=== PATIENT | male | born 1940 | race Caucasian/White ===

== ENCOUNTER 2021-08-11 05:41 | Day surgery (SDC) | payer MEDICARE, BC ==
[2021-08-03 12:04] LABS: BASOPHILS % (AUTO) 0.6 % (0-1); EOSINOPHILS # (AUTO) 0.2 X10'3 (0-0.9); EOSINOPHILS % (AUTO) 3.8 % (0-6); LYMPHOCYTES # (AUTO) 1.5 X10'3 (1.1-4.8); LYMPHOCYTES % (AUTO) 23.5 % (21-51); MEAN CORPUSCULAR HEMOGLOBIN 33.2 PG (27.0-31.0); MEAN CORPUSCULAR HGB CONC 34.3 g/dL (33.0-36.5); MEAN CORPUSCULAR VOLUME 96.8 FL (78-98); MONOCYTES # (AUTO) 0.6 X10'3 (0-0.9); MONOCYTES % (AUTO) 9.8 % (2-12); NEUTROPHILS # (AUTO) 3.9 X10'3 (1.8-7.7); NEUTROPHILS % (AUTO) 62.3 % (42-75); PRE OP HEMOGLOBIN 14.4 g/dL (14.0-17.9); PRE OP PLATELET COUNT 183 X10'3 (140-440); RED BLOOD COUNT 4.34 X10'6 (4.70-6.10); RED CELL DISTRIBUTION WIDTH 12.9 % (11.5-14.5)
[2021-08-03 12:16] LABS: ALBUMIN/GLOBULIN RATIO 1.3 (1.1-1.5); ALKALINE PHOSPHATASE 81 IU/L (46-116); BLOOD UREA NITROGEN 19 MG/DL (7-18); BUN/CREATININE RATIO 24.4 (5.4-32.0); CALCIUM 8.7 MG/DL (8.5-10.1); CHLORIDE 106 MMOL/L (99-107); CREATININE 0.78 MG/DL (0.60-1.10); PRE OP ALT 29 U/L (30-65); PRE OP ANION GAP 11 (8-16); PRE OP AST 20 U/L (10-37); PRE OP BILIRUB, TOTAL 0.5 MG/DL (0.0-1.0); PRE OP GLUCOSE 92 MG/DL (70-104); PRE OP POTASSIUM 4.2 MMOL/L (3.4-5.1); PRE OP SODIUM 142 MMOL/L (135-145); eGFR > 90 ML/MIN
[2021-08-11] VITALS (9 sets, daily range): BP systolic 129–140; BP diastolic 69–80
[~2021-08-11] VITALS: Ht 193 cm; Wt 89.9 kg
[~2021-08-11 05:41] MED LIST: ALFU10TA PO; ASPI-1264 PO; ATOR40TA PO; CETI-194 PO; CLOP-32 PO; DIPH-735 PO; DOCUMENT DATE & TIME OF BETA-BLOCKER PO ONE; GABA-530 PO; GINK120T4 PO; IBUP-24 PO; LISI40TA13 PO; LOP12.5T PO; OMEG-79 PO; PSYL0.4C2 PO; SAW/1TAB2 PO; [UNRECOGNIZED DRUG - CODE] PO; cefazolin/dext.iso 2gm/50ml 50 ML IV ONE; famotidine 20mg tablet PO ONE; focus factor PO; ringers solution, lacted 1,000 ML IV SCH
[2021-08-11] MEDS ORDERED: BUPIVAcaine/PF 2.5 mg/ml (0.25%) 30ml vial ONE (06:45)
[2021-08-11] MEDS ORDERED: hydrALAZINE 20mg/ml inj. IV PRN (07:20)
[2021-08-11] MEDS ORDERED: labetalol 20mg/4ml (5mg/ml) syringe IV PRN (07:20)
[2021-08-11] MEDS ORDERED: ondansetron/PF 4mg/2ml inj IV PRN (07:20)
[2021-08-11] MEDS ORDERED: ringers solution, lacted 1,000 ML IV SCH (07:20)
[2021-08-11] MEDS ORDERED: morphine 2 MG/ML inj. syringe IV PRN (07:20)
[2021-08-11] MEDS ORDERED: morphine 4 MG/ML inj SYRINge IV PRN (07:20)
[2021-08-11] MEDS ORDERED: fentaNYL/PF 50MCG/1 ML 2ML syringe IV PRN ×2 (07:20)
[2021-08-11] MEDS ORDERED: fentaNYL/PF 50MCG/1 ML 2ML syringe ONE (08:56)
[2021-08-11] MEDS ORDERED: MIDAZolam 1 MG/ML 5ML VIAL ONE (08:56)
--- NOTE | 2021-08-11 09:26 | NUR ---
Received from OR via [facility], accompanied by Anesthesiologist DR NEVAREZ and report given by Anesthesiologist. PT DROWSY, DENIES PAIN, RIGHT HAND/WRIST W/BIAS DRSG COVERING INCISION/DRSG CDI. 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 Addendum: 08/11/21 at 0955 by Mary Schaefer RN Amended: Links added.
--- NOTE | 2021-08-11 10:56 | NUR ---
PT UP AND ABLE TO AMBULATE W/ASSISTANCE, STATES HIS AND SON ARE AT HOME TO ASSIST HIM ONCE HE GETS HOME. D/C INSTRUCTIONS GIVEN AND GONE OVER W/PT WHO VERBALIZED UNDERSTANDING. PT D/CD TO HOME VIA W/C TO PRIVATE VEHICLE W/O INCIDENT. Addendum: 08/11/21 at 1127 by Mary Schaefer RN Amended: Links added.
== END 2021-08-11 10:56 | disposition home or self-care (01) ==
LOC: PAS 05:41
PROVIDERS: ATTEND Orthopaedic Surgery Hand Surgery
DX: G56.01 Carpal tunnel syndrome, right upper limb (principal); M19.071 Primary osteoarthritis, right ankle and foot; N40.0 Benign prostatic hyperplasia without lower urinary tract symptoms; K21.9 Gastro-esophageal reflux disease without esophagitis; G62.9 Polyneuropathy, unspecified; I10 Essential (primary) hypertension; I25.2 Old myocardial infarction; I25.10 Atherosclerotic heart disease of native coronary artery without angina pectoris; Z20.822 Contact with and (suspected) exposure to COVID-19; Z79.899 Other long term (current) drug therapy; Z79.01 Long term (current) use of anticoagulants; Z98.890 Other specified postprocedural states; Z87.891 Personal history of nicotine dependence; Z96.659 Presence of unspecified artificial knee joint; Z79.82 Long term (current) use of aspirin
CPT/HCPCS: 36415; 64721; 71046; 80053; 82948; 85025; 93005; J2250; J3010; J3490; U0003; U0005; Z7506; Z7512; A4215; J7120